=== PATIENT | female | born 1955 | race Two or more races ===

== ENCOUNTER 2024-07-13 10:00 | Outpatient (RCR) | payer MEDICARE, SELFPAY ==
--- NOTE | 2024-07-06 08:45 | PT.OIERPT ---
PT OP Initial Eval Patient Information Outpatient Physical Therapy Treatment Date: 07/06/24 Visit Reasons: Pain in left shoulder Medical Diagnosis: M25.512 Treatment Dx #1: L shoulder pain Start of Care: 07/06/24 Date of Onset: 1 yr ago Smoking Status Smoking Status: Never smoker Initial Assessment Subjective: Pt is 69 yr old female who c/o L shoulder pain working in the garden moving a plant. About 3 months ago the pain started to be constant. Increased pain with reaching behind her, with reaching behind head, and lifting things. PMH: HTN, hypothyroidism Imaging: with provider Pt goal: to get rid of the pain Objective: L shoulder AROM: ? FF: 95 deg ? Abd: 90 deg ? ER: 65 deg ? HBB: to L glute with pain ? Strength: 3+/5 in all planes Saran Jonas: positive Painful arc: positive Drop arm: positive in FF ? PROM: end-range pain with capsular tightness ? C/S AROM: ? No pain radiation into L shoulder ? Assessment: Pt presents with decreased shoulder ROM and strength consistent with RC tendinopathy/tear. Pt requires skilled therapy to meet goals and has poor/fair rehab potential due to chronicity and severity of ssx. PT recommends further diagnostic imaging of L shoulder such as MRI Short Term and Claim Service Representative Goals 1. Ind with HEP ? 2. Improved AROM of L shoulder to at least 135 deg FF, 125 deg abduction and 90 deg ? ER ? 3. Improved HBB ROM to L3 ? 4. Pt will reach OH x10 with <=4/10 pain Treatment Plan 1. Manual therapy ? 2. Therex ? 3. Modalities as indicated, moist heat pack, ice, electrical stimulation Frequency and Duration: 1-2x a week for 4 visits Certification Dates: 07/06/24 to 10/04/24 Procedure Charges OP PT Eval Mod Complex 30 minutes: Yes
--- NOTE | 2024-07-13 10:50 | PT.ODAYNRPT ---
PT Outpatient Daily Note OP Daily Note Outpatient Physical Therapy Treatment Date: 07/13/24 Visit Reasons: Pain in left shoulder Subjective: Pt reports L shoulder is sore and painful. Objective: Please see flow sheet for ther ex list. Assessment: Pt tolerated interventions with minimal pain. Plan: Continue with POC. Length of Time (minutes) of Treatment: 30 Minutes Procedure Charges Therapeutic Exercise 30 minutes: Yes
== END 2024-07-17 23:59 | disposition home or self-care (01) ==
LOC: CPTX 10:00
PROVIDERS: PCP Family Medicine; Referring Provider Family Medicine; Visit Provider Family Medicine
DX: M25.512 Pain in left shoulder (principal); I10 Essential (primary) hypertension
CPT/HCPCS: 97110; 97162

== ENCOUNTER 2024-07-26 11:00 | Outpatient (RCR) | payer MEDICARE, SELFPAY ==
--- NOTE | 2024-07-20 11:17 | PT.ODAYNRPT ---
PT Outpatient Daily Note OP Daily Note Outpatient Physical Therapy Treatment Date: 07/20/24 Visit Reasons: Pain in left shoulder Subjective: Pt reports L shoulder continues to be painful. Objective: Please see flow sheet for ther ex list. Assessment: Poor activity tolerance due to pain response. Plan: Continue with POC. Length of Time (minutes) of Treatment: 30 Minutes Procedure Charges Therapeutic Exercise 30 minutes: Yes
--- NOTE | 2024-07-22 11:11 | PTNOTE_ITS ---
PT Outpatient Daily Note <Coreen Ennis PTA - Last Filed: 07/22/24 11:21> OP Daily Note Outpatient Physical Therapy Treatment Date: 07/22/24 Visit Reasons: Pain in left shoulder Subjective: Pt c/o shoulder pain and soreness. Objective: Please see flow sheet for ther ex list. Assessment: Pt AROM continues to improve but pain continues to be present. Plan: Continue with POC. Length of Time (minutes) of Treatment: 30 Minutes AIRCRAFT CAPTAIN Service Modifier Method I: Divide the number of min of care provided by the AIRCRAFT CAPTAIN/JHON by the total min of care provided then multiply by 100. If greater than 11 percent modifier is required. Method II: Divide the total time of care provided to patient by 10 (round to the nearest whole number) and add 1 min. to set the minimum time requirement. If treatment total was 60 min., then 10% of 6 min PT CQ modifier applied: CQ Modifier applied <Geoff Ludwig, PT - Last Filed: 07/26/24 14:36> OP Daily Note Outpatient Physical Therapy Treatment Date: 07/26/24 Procedure Charges <Coreen Ennis PTA - Last Filed: 07/22/24 11:21> Therapeutic Exercise 30 minutes: Yes
--- NOTE | 2024-07-26 14:20 | PT.ODAYNRPT ---
PT Outpatient Daily Note OP Daily Note Outpatient Physical Therapy Treatment Date: 07/26/24 Visit Reasons: Pain in left shoulder Subjective: pt. reports L shoulder has been more stiff due to winter, which makes AROM L shoulder more difficult due to stiffness. she mentions MHP improves AROM for HEP Objective: see flowsheet for ther-ex AROM 115 degrees Assessment: Improvement with AROM with ther-ex Plan: continue PT per POC Length of Time (minutes) of Treatment: 30 Minutes Procedure Charges Therapeutic Exercise 30 minutes: Yes
== END 2024-08-17 23:59 | disposition home or self-care (01) ==
LOC: CPTX 11:00
PROVIDERS: PCP Family Medicine; Referring Provider Family Medicine; Visit Provider Family Medicine
DX: M25.512 Pain in left shoulder (principal)
CPT/HCPCS: 97110

== ENCOUNTER 2024-12-08 09:00 | Outpatient (RCR) | payer MEDICARE, SELFPAY ==
--- NOTE | 2024-11-18 09:07 | PT.OIERPT ---
PT OP Initial Eval Patient Information Outpatient Physical Therapy Treatment Date: 11/18/24 Visit Reasons: LEFT SHOULDER PAIN Medical Diagnosis: M25.512 Treatment Dx #1: L shoulder pain Treatment Dx #2: Dec ROM L shoulder Start of Care: 11/18/24 Date of Onset: 1.5 yrs Smoking Status Smoking Status: Never smoker Initial Assessment Subjective: Pt is 69 yr old female who c/o L shoulder pain working in the garden moving a plant. About 6 months ago the pain started to be constant. Increased pain with reaching behind her, with reaching behind head, and lifting things. PLOF: Pt had full use of L shoulder with reaching and HH chores. PMH: HTN, hypothyroidism Imaging: with provider Pt goal: to get rid of the pain Objective: L shoulder AROM: ? FF: 95 deg ? Abd: 90 deg ? ER: 85 deg ? HBB: to L glute with pain ? Strength: 3-/5 in all planes with pain Noonan Pritesh: positive Painful arc: positive PROM: end-range pain with capsular tightness ? Assessment: Pt presents with decreased L shoulder ROM and strength consistent with RC impingement/tendinopathy. Pt requires skilled therapy to meet goals and has fair rehab potential due to chronicity and severity of ssx. PT recommends further diagnostic imaging of L shoulder such as MRI Short Term and Environmental Restoration Planner Goals 1. Ind with HEP ? 2. Improved AROM of L shoulder to at least 135 deg FF, 125 deg abduction and 90 deg ? ER ? 3. Improved HBB ROM to L3 ? 4. Pt will reach OH x10 with <=4/10 pain Treatment Plan 90 day POC 1. Manual therapy ? 2. Therex ? 3. Modalities as indicated, moist heat pack, ice, electrical stimulation Frequency and Duration: 1-2x a week for 4 visits then reassess Certification Dates: 11/18/24 to 02/16/25 Procedure Charges OP PT Eval Mod Complex 30 minutes: Yes
--- NOTE | 2024-11-22 10:21 | PT.ODAYNRPT ---
PT Outpatient Daily Note OP Daily Note Outpatient Physical Therapy Treatment Date: 11/22/24 Visit Reasons: LEFT SHOULDER PAIN Subjective: Pt c/o pain in L shoulder Objective: See F/S for therex Assessment: Moderate tissue irritability of L shoulder with AAROM therex into abduction and ER. Plan: Continue per POC Length of Time (minutes) of Treatment: 30 Minutes Procedure Charges Therapeutic Exercise 30 minutes: Yes
--- NOTE | 2024-11-24 09:56 | PT.ODAYNRPT ---
PT Outpatient Daily Note OP Daily Note Outpatient Physical Therapy Treatment Date: 11/24/24 Visit Reasons: LEFT SHOULDER PAIN Subjective: Pt c/o pain in L shoulder Objective: See F/S for therex Assessment: Moderate tissue irritability of L shoulder with AAROM therex into abduction and ER. Plan: Continue per POC Length of Time (minutes) of Treatment: 30 Minutes Procedure Charges Therapeutic Exercise 30 minutes: Yes
--- NOTE | 2024-12-02 09:58 | PT.ODAYNRPT ---
PT Outpatient Daily Note OP Daily Note Outpatient Physical Therapy Treatment Date: 12/02/24 Visit Reasons: LEFT SHOULDER PAIN Subjective: Pt c/o pain in L shoulder with certain movements like putting on seatbelt. Objective: See F/S for therex MT: STM lateral shoulder x5' Assessment: Moderate tissue irritability of L shoulder with AAROM therex into abduction and ER and with impngement positions. Plan: Continue per POC Length of Time (minutes) of Treatment: 30 Minutes Procedure Charges Therapeutic Exercise 30 minutes: Yes
--- NOTE | 2024-12-08 12:47 | PT.ODS1RPT ---
PT OP Progress/Discharge Note Date of Service: 12/08/24 Progress Note/DC Note Progress Note/Discharge Note: Progress Note Patient Information Visit Reasons: LEFT SHOULDER PAIN Service Continue Service or Discharge: Continue Service Status Subjective: Pt c/o pain in L shoulder with certain movements like putting on seatbelt but it's less since starting therapy and she would like to continue. Objective: See F/S for therex MT: STM lateral shoulder x5' L shoulder AROM: FF: 125 deg ABd 135 deg ER: 90 deg Hand behind back to L5 with pain, slowly Assessment: Pt has attended 4/4 Rx sessions with progress with therapy goals. She has improved AROM in all planes especially abduction. FF is limited by pain and she is about 10 deg shy of meeting that goal of 135 deg. Pt has moderate tissue irritability of L shoulder with AAROM therex into abduction and ER and with impingement positions. Hand behind back is limited by pain and she hasn't met that goal to reaching to L3. Plan: Request additional visits x6 in order to continue with therapy. We will need provider's signature on this progress note and additional authorized visits to continue. Goals Achieved: 1. Ind with HEP ? Procedure Charges Therapeutic Exercise 30 minutes: Yes
== END 2024-12-15 23:59 | disposition home or self-care (01) ==
LOC: CPTX 09:00
PROVIDERS: PCP Family Medicine; Referring Provider Family Medicine; Visit Provider Family Medicine
DX: M25.512 Pain in left shoulder (principal); I10 Essential (primary) hypertension
CPT/HCPCS: 97110; 97162

== ENCOUNTER 2025-01-12 09:30 | Outpatient (RCR) | payer MEDICARE, SELFPAY ==
--- NOTE | 2025-01-04 11:24 | PT.ODAYNRPT ---
PT Outpatient Daily Note OP Daily Note Outpatient Physical Therapy Treatment Date: 01/04/25 Visit Reasons: Pain in left shoulder Subjective: Pt reports less pain in L shoulder Objective: See F/S for therex Assessment: Less tissue irritability of L shoulder with AAROM therex into abduction and ER and with impingement positions. Plan: Continue per POC Length of Time (minutes) of Treatment: 30 Minutes Procedure Charges Therapeutic Exercise 30 minutes: Yes
--- NOTE | 2025-01-06 11:06 | PTNOTE_ITS ---
PT Outpatient Daily Note OP Daily Note Outpatient Physical Therapy Treatment Date: 01/06/25 Visit Reasons: Pain in left shoulder Subjective: Pt reports her shoulder is pretty sore and painful today. Objective: Please see flow sheet for ther ex listt. Assessment: Pt tolerated interventions with minimal pain and muscle fatigue, applied cold pack at end of session. Plan: Continue with POC. Length of Time (minutes) of Treatment: 30 Minutes OUTSIDE INDUSTRIAL SALES REPRESENTATIVE Service Modifier Method I: Divide the number of min of care provided by the OUTSIDE INDUSTRIAL SALES REPRESENTATIVE/INTAKE CLERK by the total min of care provided then multiply by 100. If greater than 11 percent modifier is required. Method II: Divide the total time of care provided to patient by 10 (round to the nearest whole number) and add 1 min. to set the minimum time requirement. If treatment total was 60 min., then 10% of 6 min PT CQ modifier applied: CQ Modifier applied Procedure Charges Therapeutic Exercise 30 minutes: Yes
--- NOTE | 2025-01-12 10:29 | PT.ODAYNRPT ---
PT Outpatient Daily Note OP Daily Note Outpatient Physical Therapy Treatment Date: 01/12/25 Visit Reasons: Pain in left shoulder Subjective: Pt reports less pain in L shoulder but hurts reaching up to the side Objective: See F/S for therex Assessment: Improved ROM of L shoulder with AAROM therex into abduction and ER since starting therapy Plan: Continue per POC Length of Time (minutes) of Treatment: 30 Minutes Procedure Charges Therapeutic Exercise 30 minutes: Yes
== END 2025-01-15 23:59 | disposition home or self-care (01) ==
LOC: CPTX 09:30
PROVIDERS: PCP Family Medicine; Referring Provider Family Medicine; Visit Provider Family Medicine
DX: M25.512 Pain in left shoulder (principal); I10 Essential (primary) hypertension
CPT/HCPCS: 97110

== ENCOUNTER 2025-01-17 08:00 | Outpatient (RCR) | payer MEDICARE, SELFPAY ==
--- NOTE | 2025-01-17 08:12 | PT.ODAYNRPT ---
PT Outpatient Daily Note OP Daily Note Outpatient Physical Therapy Treatment Date: 01/17/25 Visit Reasons: LEFT SHOULDER PAIN Subjective: Pt reports less pain in L shoulder but hurts reaching up to the side Objective: See F/S for therex Assessment: Improved ROM of L shoulder with AAROM therex into abduction to about 130 deg and ER to 80 deg since starting therapy Plan: Continue per POC Length of Time (minutes) of Treatment: 30 Minutes Procedure Charges Therapeutic Exercise 30 minutes: Yes
== END 2025-02-14 23:59 | disposition home or self-care (01) ==
LOC: CPTX 08:00
PROVIDERS: PCP Family Medicine; Referring Provider Family Medicine; Visit Provider Family Medicine
DX: M25.512 Pain in left shoulder (principal); I10 Essential (primary) hypertension
CPT/HCPCS: 97110

== ENCOUNTER → 2025-04-15 | Outpatient (CLI) | payer MEDICARE, SELFPAY ==
--- NOTE | 2025-04-15 08:45 | XR_ITS ---
Examination: Screening digital mammography, bilateral Computer aided detection 3-D breast Tomosynthesis, bilateral Date and time of exam: 04/15/2025, 9:03 AM Comparisons: July 2016 through February 2024 Indications: Screening Technique: Nonmagnified MLO, CC views of the breasts to been obtained, reconstructed from 3-D Tomosynthesis images. R2 computer aided detection program utilized for evaluation of suspicious masses and/or abnormal calcifications. 3-D Tomosynthesis images obtained. Technologist: Findings: There are scattered areas of fibroglandular density. No evidence of abnormal masses or suspicious calcifications. Impression: BI-RADS category 1: Negative findings (within normal) Recommend 1 year follow-up mammogram
== END | disposition home or self-care (01) ==
LOC: CDIM 08:51
PROVIDERS: Referring Provider Family Medicine; Visit Provider Family Medicine
DX: Z12.31 Encounter for screening mammogram for malignant neoplasm of breast (principal); R92.313 Mammographic fatty tissue density, bilateral breasts
CPT/HCPCS: 77063; 77067

== ENCOUNTER → 2025-05-05 | Outpatient (CLI) | payer MEDICARE, SELFPAY ==
--- NOTE | 2025-05-05 14:20 | XR_ITS ---
Examination: Bone densitometry Date and time of exam:May 05, 2025 1437 hours INDICATIONS: Hysterectomy age 36 calcium and vitamin D 4 years Technique: Lumbar spine and hip total bone mineralization values of an calculated. Peak reference and age match control results have been displayed. Findings: Lumbar spine total bone mineralization is1.087 gm/cm2. This is 0.4 standard deviations above peak reference. This is 2.4 standard deviations above age-matched controls. Hip total bone mineralization is 0.923 gm/cm2 This is 23 standard deviations below peak reference. This is 1.1 standard deviations above age-matched controls Impression: There is normal mineralization based on lumbar spine measurements. There is osteopenia based on hip measurements Lumbar mineralization is increased 1.4% compared with March 11, 2023 Hip mineralization is increased 3.0% compared with March 11, 2023
== END | disposition home or self-care (01) ==
LOC: CDIM 14:10
PROVIDERS: Referring Provider Family Medicine; Visit Provider Family Medicine
DX: M85.89 Other specified disorders of bone density and structure, multiple sites (principal)
CPT/HCPCS: 77080